=== PATIENT | male | born 1995 | race Caucasian/White ===

== ENCOUNTER 2023-11-30 09:05 | Emergency (ER) | payer MEDICAID ==
[~2023-11-30] VITALS: Ht 170.2 cm; Wt 72.6 kg
[2023-11-30] MEDS ORDERED: IBUP-1955 PO (11:58)
[2023-11-30] MEDS ORDERED: CYCL5TAB PO (11:58)
[2023-11-30] MEDS ORDERED: KETOROLAC TROMETHAMINE 15 MG/ML VIAL ONE (12:06)
[2023-11-30] MEDS: KETOROLAC TROMETHAMINE 15 MG/ML VIAL IM ONE (12:13)
[2023-11-30 12:16] VITALS: BP 118/74; TEMP 98.6; O2SAT 96
== END 2023-11-30 12:17 | disposition home or self-care (01) ==
LOC: ER 09:07
DX: M79.10 Myalgia, unspecified site (principal); M54.6 Pain in thoracic spine; M54.50 Low back pain, unspecified; V49.49XA Driver injured in collision with other motor vehicles in traffic accident, initial encounter; Y93.89 Activity, other specified; Y92.89 Other specified places as the place of occurrence of the external cause; Y99.8 Other external cause status
CPT/HCPCS: 99283; 71045; 96372; J1885